=== PATIENT | male | born 1970 | race Caucasian/White ===

== ENCOUNTER 2022-11-04 19:03 | Emergency (ER) | payer OTHER, SELFPAY ==
[2022-11-04 19:10] VITALS: BP 107/74; PULSE 57; RESP 16; TEMP 36.2; O2SAT 100
--- NOTE | 2022-11-04 19:15 | ED.URI ---
HPI - URI/Sore Throat General Chief Complaint: Upper Respiratory Infection Stated Complaint: sinus infection Time Seen by Provider: 11/04/22 19:18 History of Present Illness HPI Narrative: PATIENT PRESENTS WITH SINUS PRESSURE AND CONGESTION ON AND OFF FOR THE PAST WEEK PATIENT STATES SYMPTOMS IMPROVED AND THEN BECAME WORSE YESTERDAY. PATIENT HAS NOT TAKEN ANYTHING FOR HIS SYMPTOMS Related Data Home Medications Medication Instructions Recorded Confirmed pitavastatin calcium 2 mg tablet mg 11/04/22 (Livalo) ramipril 5 mg capsule mg 11/04/22 Allergies Allergy/AdvReac Type Severity Reaction Status Date / Time Sulfa (Sulfonamide Allergy Unknown Verified 10/12/17 21:20 Antibiotics) Review of Systems Review of Systems: CONSTITUTIONAL: DENIES CHILLS, OR SWEATS. REPORTS FEVER AND GENERALIZED BODY ACHES EYES: DENIES VISUAL CHANGES, REDNESS, OR DISCHARGE. ENT: DENIES OTALGIA. REPORTS NASAL CONGESTION RUNNY NOSE AND SORE THROAT CARDIOVASCULAR: DENIES CHEST PAIN, PALPITATIONS, OR EDEMA. RESPIRATORY: DENIES DYSPNEA. REPORTS OCCASIONAL COUGH GASTROINTESTINAL: DENIES ABDOMINAL PAIN, NAUSEA, VOMITING, OR DIARRHEA. GENITOURINARY: DENIES DYSURIA OR HEMATURIA. SKIN: DENIES RASH OR ITCHING. MUSCULOSKELETAL: DENIES BACK PAIN, JOINT PAIN, OR MYALGIA. REPORTS GENERALIZED BODY ACHES NEUROLOGIC: DENIES HEADACHE, NUMBNESS, OR WEAKNESS. PSYCHIATRIC: DENIES ANXIETY OR DEPRESSION. PMFSH Comments AT TIME OF SIGNATURE, AGREE WITH NURSING PAST MEDICAL, SURGICAL, SOCIAL AND FAMILY HISTORY. THERE IS NO RELEVANT FAMILY HISTORY PERTINENT TO THE PRESENTING COMPLAINT Exam Narrative: THE PATIENT IS A WELL-DEVELOPED, WELL-NOURISHED IN NO ACUTE DISTRESS. SKIN: SKIN IS WARM AND DRY WITHOUT ERYTHEMA, SWELLING OR EXUDATE. THERE IS GOOD TURGOR. NO TENTING. HEAD: ATRAUMATIC. NORMOCEPHALIC. NO TEMPORAL OR SCALP TENDERNESS. EYES: MOIST AND BRIGHT. SCLERA AND CONJUNCTIVAE NORMAL. NO DISCHARGE. PERRLA. EXTRAOCULAR MOTIONS INTACT. GROSS VISUAL ACUITY INTACT. EARS: PINNA IS NORMAL SHAPE AND CONTOUR. CLEAR EXTERNAL AUDITORY CANALS. TM PEARLY SALINAS WITH GOOD CONE OF LIGHT, NO ERYTHEMA OR SUPPURATION. BILATERAL CERUMEN NOTED NO GROSS HEARING DEFICIT. NOSE: PINK, MOIST MUCOSA WITH GOOD AIR MOVEMENT. CLEAR RHINORRHEA WITHOUT NASAL FLARING. SEPTUM MIDLINE. MOUTH: MOIST MUCOUS MEMBRANES. THROAT; MILD ERYTHEMA NOTED TO POSTERIOR OROPHARYNX WITH MODERATE POSTNASAL DRAINAGE. WITHOUT EXUDATE OR ULCERATION.. UVULA MIDLINE. NORMAL MOVEMENT OF SOFT PALATE. NECK: SUPPLE AND NONTENDER WITH FULL RANGE OF MOTION WITHOUT DISCOMFORT. NO MENINGEAL SIGNS. LUNGS: EQUAL AND BILATERAL BREATH SOUNDS WITHOUT WHEEZES, RALES OR RHONCHI. CHEST: THE CHEST WALL IS WITHOUT RETRACTIONS OR USE OF ACCESSORY MUSCLES. HEART: HAS A REGULAR RATE AND RHYTHM WITHOUT MURMUR, GALLOPS, CLICK OR RUB. ABDOMEN: SOFT, NONTENDER WITH POSITIVE ACTIVE BOWEL SOUNDS. NO REBOUND TENDERNESS. EXTREMITIES: WITHOUT CYANOSIS, CLUBBING OR EDEMA. EQUAL 2+ DISTAL PULSES AND 2 SECOND CAPILLARY REFILL NOTED. NEUROLOGIC: ALERT, ACTIVE, . THE PATIENT MOVES ALL EXTREMITIES WITH NORMAL MUSCLE STRENGTH. NORMAL MUSCLE TONE IS NOTED. NORMAL COORDINATION IS NOTED. NO FOCAL NEUROLOGICAL FINDINGS NOTED. Course Course Level of Care: Express Care Visit Vital Signs Vital signs: Vital Signs Temperature 36.2 C L 11/04/22 19:10 Pulse Rate 57 L 11/04/22 19:10 Respiratory Rate 16 11/04/22 19:10 Blood Pressure 107/74 11/04/22 19:10 Pulse Oximetry 100 11/04/22 19:10 Oxygen Delivery Room Air 11/04/22 19:10 Temperature 36.2 C L 11/04/22 19:10 Pulse Rate 57 L 11/04/22 19:10 Respiratory Rate 16 11/04/22 19:10 Blood Pressure 107/74 11/04/22 19:10 Pulse Oximetry 100 11/04/22 19:10 Oxygen Delivery Room Air 11/04/22 19:10 MDM - URI/Sore Throat Differential Diagnosis Differential diagnosis: Likely upper respiratory infection, croup, otitis media, sinusitis, viral infection, bronchitis, influe
== END 2022-11-04 19:22 | disposition home or self-care (01) ==
PROVIDERS: Emergency Provider Nurse Practitioner Family; PCP Internal Medicine Geriatric Medicine
DX: J06.9 Acute upper respiratory infection, unspecified (principal); E78.00 Pure hypercholesterolemia, unspecified; I10 Essential (primary) hypertension
CPT/HCPCS: 99203; G0463

== ENCOUNTER 2025-08-31 12:43 | Outpatient (CLI) | payer OTHER, SELFPAY ==
--- NOTE | ~2025-08-31 | US_ITS ---
PROCEDURE(S): US soft tissue groin LT INDICATION(S): Left lower quadrant pain and LEFT GROIN PAIN. Hernia repair in the past. COMPARISON(S): None. TECHNIQUE: Grayscale imaging FINDINGS: Sonography was performed through the area of pain in the left lower quadrant. No definite abdominal wall hernia is seen. IMPRESSION: Unremarkable limited soft tissue ultrasound of the left groin. No hernia identified. Reviewed, dictated and finalized at location B. MARKETING SPECIALIST IMPRESSION: Unremarkable limited soft tissue ultrasound of the left groin. No h ernia identified.
--- NOTE | ~2025-08-31 | US_ITS ---
EXAMINATION: Ultrasound scrotum with Doppler: DATE: 04/30/2025. INDICATION: Left scrotal pain. Left groin pain. TECHNIQUE: High resolution ultrasound scrotum with Doppler. were obtained. COMPARISON: None. FINDINGS: No intratesticular lesions. Normal color flow of both testes. Bilateral varicocele are noted more prominent on the left side. No significant hydrocele. IMPRESSION: 1. Normal color perfusion of both testes. 2. Bilateral varicocele left larger than right. Reviewed, dictated and finalized at location T. LABELER
== END 2025-08-31 12:44 | disposition home or self-care (01) ==
PROVIDERS: PCP Internal Medicine Geriatric Medicine; Visit Provider Nurse Practitioner Family
DX: R10.32 Left lower quadrant pain (principal); I86.1 Scrotal varices
CPT/HCPCS: 76870; 76882; 93976